=== PATIENT | male | born 1985 | race African-American/Black ===

== ENCOUNTER 2017-01-07 14:44 | Emergency (ER) | payer SELFPAY ==
--- NOTE | 2017-01-07 15:37 | ER Document Report ---
ED Medical Screen (RME) - General Chief Complaint: Abdominal Pain Stated Complaint: ABDOMINAL PAIN Time Seen by Provider: 01/07/17 15:30 Mode of Arrival: Ambulatory Information source: Patient TRAVEL OUTSIDE OF THE [place] IN LAST 30 DAYS: No - HPI Patient complains to provider of: rectal twitching, loose stools, nausea Notes: 01/07/17 15:36 Patient is a 31-year-old male who presents to the emergency room complaining of mucousy bloody stools with rectal pain and twitching that has been going on for the past 2-3 years, the twitching has become more prominent over the past few weeks prompting him to come to the emergency room, he does report gassy bloating sensation in his abdomen, but denies any actual abdominal pain, he reports nausea but no vomiting, he has never been evaluated for the symptoms in the past, does have a history of lymphoma that was treated in the past and RA, recently quit smoking cigarettes about a week ago, stopped smoking marijuana about a month ago, rarely uses alcohol - Related Data Allergies/Adverse Reactions: avacado Allergy (Uncoded 01/07/17 14:49) Past Medical History - Past Medical History Cardiac Medical History: Reports: Hx Heart Murmur Pulmonary Medical History: Reports: Hx Asthma - as a child Neurological Medical History: Reports: Hx Cerebrovascular Accident - as a child from high temperature from rheumatic fever Renal/ Medical History: Denies: Hx Peritoneal Dialysis Malignancy Medical History: Reports Hx Lymphoma - 2012, RESOLVED W/ MINIMAL TREATMENT GI Medical History: Reports: Hx Gastroesophageal Reflux Disease Musculoskeltal Medical History: 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
[2017-01-07 16:18] LABS: ABSOLUTE BASOPHILS # (AUTO) 0.1 10^3/uL (0.0-0.2); ABSOLUTE EOSINOPHILS # (AUTO) 0.1 10^3/uL (0.0-0.6); ABSOLUTE LYMPHOCYTES (AUTO) 2.5 10^3/uL (0.5-4.7); ABSOLUTE MONOCYTES (AUTO) 0.5 10^3/uL (0.1-1.4); ABSOLUTE NEUT (AUTO) 2.8 10^3/uL (1.7-8.2); HEMATOCRIT 44.7 % (37.9-51.0); HEMOGLOBIN 14.4 g/dL (13.5-17.0); HGB HCT DIFFERENCE -1.5; LYMPHOCYTES % (AUTO) 41.9 % (13-45); MEAN CORPUSCULAR HEMOGLOBIN 27.5 pg (27.0-33.4); MEAN CORPUSCULAR HGB CONC 32.3 g/dL (32.0-36.0); MEAN CORPUSCULAR VOLUME 85 fl (80-97); MONOCYTES % (AUTO) 8.9 % (3-13); RED BLOOD COUNT 5.24 10^6/uL (4.35-5.55); SEGMENTED NEUTROPHILS % (AUTO) 47.2 % (42-78)
[2017-01-07 16:32] LABS: ALANINE AMINOTRANSFERASE 47 U/L (21-72); ALBUMIN 4.4 g/dL (3.5-5.0); ALKALINE PHOSPHATASE 55 U/L (38-126); ANION GAP 10 (5-19); ASPARTATE AMINO TRANSFERASE 29 U/L (17-59); BILIRUBIN,DIRECT 0.4 mg/dL (0.0-0.4); BILIRUBIN,TOTAL 0.5 mg/dL (0.2-1.3); BLOOD UREA NITROGEN 11 mg/dL (7-20); CALCIUM 9.6 mg/dL (8.4-10.2); CARBON DIOXIDE 30 mmol/L (22-30); CHLORIDE 103 mmol/L (98-107); CREATININE RESULT 1.02 mg/dL (0.52-1.25); GLUCOSE 94 mg/dL (75-110); LIPASE 222.6 U/L (23-300); POTASSIUM 4.8 mmol/L (3.6-5.0); SODIUM 142.7 mmol/L (137-145); TOTAL PROTEIN 7.6 g/dL (6.3-8.2)
[2017-01-07 16:53] LABS: APPEARANCE,URINE CLOUDY; BILIRUBIN,URINE NEGATIVE (NEGATIVE); GLUCOSE, URINE NEGATIVE (NEGATIVE); KETONES,URINE NEGATIVE (NEGATIVE); URINE SPECIFIC GRAVITY 1.023
[2017-01-07 16:54] LABS: LEUKOCYTE ESTERASE,URINE NEGATIVE (NEGATIVE); NITRITE,URINE NEGATIVE (NEGATIVE); PROTEIN,URINE NEGATIVE (NEGATIVE); UROBILINOGEN,URINE NEGATIVE mg/dL (<2.0)
--- NOTE | 2017-01-07 19:27 | ER Document Report ---
ED GI/ - General Mode of Arrival: Ambulatory Information source: Patient TRAVEL OUTSIDE OF THE [place] IN LAST 30 DAYS: No - HPI Patient complains to provider of: Abdominal pain Onset: Other - see notes above Associated symptoms: Other - see notes above <MELISSA PORRAS - Last Filed: 01/07/17 21:43> <LISSETJUANAMARJIT FULLER DAVID - Last Filed: 01/07/17 23:37> - General Chief Complaint: Abdominal Pain Stated Complaint: ABDOMINAL PAIN Time Seen by Provider: 01/07/17 15:30 Notes: 31-year-old male with history of lymphoma (3 years ago) and rheumatoid arthritis (unmedicated) presents to the ED complaining of generalized abdominal pain for a few years that has recently been worsening. Patient reports that his symptoms started with episodes of rectal bleeding which was resolved after being seen in the ED. Patient states that since the rectal bleeding he hasn't had the same stool consistency. Patient also complains of mucus with his bowel movement and waking up with mucus in his underwear. Patient is also complaining of worsening 'twitching' and swelling to the rectal area. PCP: Dr. Renae (MELISSA PORRAS) - Related Data Allergies/Adverse Reactions: avacado Allergy (Uncoded 01/07/17 14:49) Past Medical History - General Information source: Patient - Social History Smoking Status: Unknown if Ever Smoked Family History: CAD, DM, Hyperlipidemia, Hypertension, Malignancy, Other - mother, abdominal tumors Patient has suicidal ideation: No Patient has homicidal ideation: No - Past Medical History Cardiac Medical History: Reports: Hx Heart Murmur Pulmonary Medical History: Reports: Hx Asthma - as a child Neurological Medical History: Reports: Hx Cerebrovascular Accident - as a child from high temperature from rheumatic fever Renal/ Medical History: Denies: Hx Peritoneal Dialysis Malignancy Medical History: Reports Hx Lymphoma - 2013, RESOLVED W/ MINIMAL TREATMENT GI Medical History: Reports: Hx Gastroesophageal Reflux Disease Musculoskeltal Medical History: 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 Psychiatric Medical History: Reports: Hx Anxiety, Hx Depression - Immunizations Immunizations up to date: Yes Hx Diphtheria, Pertussis, Tetanus Vaccination: Yes - 2011 <MELISSA PORRAS - Last Filed: 01/07/17 21:43> Review of Systems - Review of Systems Constitutional: No symptoms reported EENT: No symptoms reported Cardiovascular: No symptoms reported Respiratory: No symptoms reported Gastrointestinal: See HPI, Abdominal pain, Other - swelling and twitching to the anal area Genitourinary: No symptoms reported Male Genitourinary: No symptoms reported Musculoskeletal: No symptoms reported Skin: No symptoms reported Hematologic/Lymphatic: No symptoms reported Neurological/Psychological: No symptoms reported -: Yes All other systems reviewed and negative <MELISSA PORRAS - Last Filed: 01/07/17 21:43> Physical Exam - Vital signs Interpretation: Normal - General General appearance: Appears well, Alert - HEENT Head: Normocephalic, Atraumatic Eyes: Normal Pupils: PERRL - Respiratory Respiratory status: No respiratory distress Chest status: Nontender Breath sounds: Normal Chest palpation: Normal - Cardiovascular Rhythm: Regular Heart sounds: Normal auscultation Murmur: No - Abdominal Inspection: Normal Distension: No distension Bowel sounds: Normal Tenderness: Nontender Organomegaly: No organomegaly - Rectal Tenderness: No Stool: Heme negative Hemorrhoids: Internal Prostate: Normal. No: Tender, Boggy - Back Back: Normal, Nontender - Extremities General upper extremity: Normal inspection, Nontender, Normal color, Normal ROM , Normal temperature General lower extremity: Normal inspection, Nontender, Normal color, Normal ROM , Normal temperature, Normal weight bearing. No: Lorna's sign - Neurological Neuro grossly intact: Yes Cognition: Normal Orientation: AAOx4 Sperry Coma Scale Eye Opening: Spontaneous Sperry Coma Scale Verbal: Oriented Isra Coma Scale Motor: Obeys Commands Isra Coma Scale Total: 15 Speech: Normal Motor strength normal: LUE, RUE, LLE, RLE Sensory: Normal - Psychological Associated symptoms: Normal affect, Normal mood - Skin Skin Temperature: Warm Skin Moisture: Dry Skin Color: Normal <AMARJIT PAYAN - Last Filed: 01/07/17 23:37> - Vital signs Vitals: Temp Pulse Resp BP Pulse Ox 98.3 F 85 20 132/74 H 99 01/07/17 14:49 01/07/17 14:49 01/07/17 14:49 01/07/17 14:49 01/07/17 14:49 Course - Laboratory Result Diagrams: 01/07/17 15:55 01/07/17 15:55 <MELISSA PORRAS - Last Filed: 01/07/17 21:43> - Laboratory Result Diagrams: 01/07/17 15:55 01/07/17 15:55 - Diagnostic Test Radiology reviewed: Reports reviewed <AMARJIT PAYAN - Last Filed: 01/07/17 23:37> - Re-evaluation Re-evalutation: 01/07/17 23:37 Patient has no acute findings on blood work or imaging. Patient is instructed to follow-up for colonoscopy. I cannot find anything to treat today. No blood on exam. No evidence for rectal cancer on exam. Patient with history of intestinal disease in his family. Given the number for gastroenterology. ( AMARJIT PAYAN) - Vital Signs Vital signs: Temp Pulse Resp BP Pulse Ox 97.7 F 84 18 129/76 H 99 01/07/17 20:51 01/07/17 22:12 01/07/17 22:12 01/07/17 22:12 01/07/17 22:12 - Laboratory Laboratory results interpreted by me: 01/07/17 15:55 RDW 15.0 H Plt Count 116 L Discharge <MELISSA PORRAS - Last Filed: 01/07/17 21:43> <AMARJIT PAYAN - Last Filed: 01/07/17 23:37> - Discharge Clinical Impression: Proctalgia Abdominal pain Qualifiers: Abdominal location: unspecified location Qualified Code(s): R10.9 - Unspecified abdominal pain Condition: Stable Disposition: HOME, SELF-CARE Instructions: Abdominal Pain ([facility]) Additional Instructions: There are no abnormalities on your blood work or CT scan. Please follow-up with a appeals referee for colonoscopy. Forms: Return to Work Referrals: MACKENZIE RENAE MD [Primary Care Provider] - Follow up as needed RHONA CHRISTENSEN MD [ACTIVE STAFF] - Follow up as needed Scribe Attestation: 01/07/17 23:37 I personally performed the services described in the documentation, reviewed and edited the documentation which was dictated to the scribe in my presence, and it accurately records my words and actions. (AMARJIT PAYAN) Scribe Documentation - Scribe Written by Scribe:: Kathy Maldonado, 01/07/2017 [id number] acting as scribe for :: Avelina <MELISSA PORRAS - Last Filed: 01/07/17 21:43>
[2017-01-07] MEDS ORDERED: ONDANSETRON HCL INJ/PF 4 MG/2 ML SDV IV ONE ×2 (19:45→19:46)
--- NOTE | 2017-01-07 20:50 | RADIOLOGY REPORT (SQ) ---
EXAM DESCRIPTION: CT ABD/PELVIS WITH IV ONLY COMPLETED DATE/TIME: 01/07/2017 8:37 pm REASON FOR STUDY: pain, blood, mucus COMPARISON: None. TECHNIQUE: CT scan of the abdomen and pelvis performed using helical scanning technique with dynamic intravenous contrast injection. No oral contrast. Images reviewed with lung, soft tissue, and bone windows. Reconstructed coronal and sagittal MPR images reviewed. Delayed images for evaluation of the urinary system also acquired. All images stored on PACS. All CT scanners at this facility use dose modulation, iterative reconstruction, and/or weight based d osing when appropriate to reduce radiation dose to as low as reasonably achievable (ALARA). [facility]: Dose Right [facility]: CareDose [facility]: Dose Right [facility]: Teradose 4D [facility]: [employer] CONTRAST TYPE AND DOSE: contrast/concentration: Isovue 370.00 mg/ml; Total Contrast Delivered: 100.0 ml; Total Saline Delivered: 50.0 ml RENAL FUNCTION: BUN 11 creatinine 1.02. RADIATION DOSE: Up-to-date CT equipment and radiation dose reduction techniques were employed. CTDIv ol: 20.5 - 21.1 mGy. DLP: 2443 mGy-cm.. LIMITATIONS: None. FINDINGS: LOWER CHEST: No significant findings. No nodules or infiltrates. LIVER: Normal size. Marked diffuse fatty infiltration. No masses or dilated ducts. SPLEEN: Normal size. No focal lesions. PANCREAS: No masses. No significant calcifications. No adjacent inflammation or peripancreatic fluid collections. Pancreatic duct not dilated. GALLBLADDER: No identified stones by CT criteria. No inflammatory changes to suggest cholecystitis. ADRENAL GLANDS: No significant masses or asymmetry. RIGHT KIDNEY AND URETER: No solid masses. No significant calcifications. No hydronephrosis or hyd roureter. LEFT KIDNEY AND URETER: No solid masses. No significant calcifications. No hydronephrosis or hydr oureter. AORTA AND VESSELS: No aneurysm. No dissection. Renal arteries, SMA, celiac without stenosis. RETROPERITONEUM: No retroperitoneal adenopathy, hemorrhage or masses. BOWEL AND PERITONEAL CAVITY: No masses or inflammatory changes. No free fluid or peritoneal masses. APPENDIX: Normal. PELVIS: No mass or free fluid. Normal bladder. ABDOMINAL WALL: No masses. No hernias. BONES: No significant or acute findings. OTHER: No other significant finding. IMPRESSION: MARKED DIFFUSE FATTY INFILTRATION OF THE LIVER. NO OTHER SIGNIFICANT OR ACUTE FINDING I N THE ABDOMEN OR PELVIS ON CT SCAN WITH IV CONTRAST. TECHNICAL DOCUMENTATION: JOB ID: [id number] Quality ID # [id number]: Final reports with documentation of one or more dose reduction techniques (e.g., Au tomated exposure control, adjustment of the mA and/or kV according to patient size, use of iterative reconstruction technique) 2010 [employer]- All Rights Reserved
[2017-01-07 22:13] VITALS: BP 129/76
== END 2017-01-07 22:13 | disposition home or self-care (01) ==
LOC: ER 14:44
DX: R10.84 Generalized abdominal pain (principal); K62.89 Other specified diseases of anus and rectum; R19.4 Change in bowel habit; R19.5 Other fecal abnormalities; R25.3 Fasciculation; Z91.018 Allergy to other foods; Z85.72 Personal history of non-Hodgkin lymphomas; Z86.73 Personal history of transient ischemic attack (TIA), and cerebral infarction without residual deficits; Z83.79 Family history of other diseases of the digestive system
CPT/HCPCS: 99284; 96374; 36415; 87086; 83690; 85025; 80053; 81001; 74177; J2405

== ENCOUNTER 2019-06-01 18:19 | Emergency (ER) | payer BC, OTHER ==
[2019-06-01] MEDS ORDERED: IPRATROPIUM/ALBUTEROL 0.5-2.5 MG/3 ML AMPUL NEB ONE ×2 (19:03→21:34)
--- NOTE | 2019-06-01 19:08 | EKG REPORT ---
SEVERITY:- ABNORMAL ECG - SINUS RHYTHM LEFT VENTRICULAR HYPERTROPHY : Confirmed by: Oz Edwards MD 01-Jun-2019 19:07:25
--- NOTE | 2019-06-01 19:08 | ER Document Report ---
ED Medical Screen (RME) - General Chief Complaint: Chest Pain Stated Complaint: CHEST PAIN Time Seen by Provider: 06/01/19 18:53 Primary Care Provider: UZMA RENAE MD [Primary Care Provider] - Follow up as needed Notes: Patient is a 33-year-old male who presents the emergency department with a chief complaint of shortness of breath. Patient states that he feels like he has a foreign body feeling in his chest. Patient also states that he feels nauseous. Patient has a history of lymphoma and was diagnosed with it about 4 to [address] Bolden was his oncologist at that time. Patient also states that he feels his pain is going from his chest up into his neck. States that he is having some visual changes. Patient states that he has been a daily smoker since he was 15. Exam: Diminished expiratory lung sounds. I have greeted and performed a rapid initial assessment of this patient. A comprehensive ED assessment and evaluation of the patient, analysis of test results and completion of medical decision making process will be conducted by an additional ED providers. TRAVEL OUTSIDE OF THE [place] IN LAST 30 DAYS: No - Related Data Allergies/Adverse Reactions: avacado Allergy (Uncoded 06/01/19 18:44) Past Medical History - Social History Chew tobacco use (# tins/day): No Frequency of alcohol use: None Drug Abuse: Marijuana - Past Medical History Cardiac Medical History: Reports: Hx Heart Murmur Pulmonary Medical History: Reports: Hx Asthma - as a child Neurological Medical History: Reports: Hx Cerebrovascular Accident - as a child from high temperature from rheumatic fever Renal/ Medical History: Denies: Hx Peritoneal Dialysis Malignancy Medical History: Reports Hx Lymphoma - 2012, RESOLVED W/ MINIMAL TREATMENT GI Medical History: Reports: Hx Gastroesophageal Reflux Disease Musculoskeltal Medical History: 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
[2019-06-01 19:48] LABS: ABSOLUTE EOSINOPHILS # (AUTO) 0.1 10^3/uL (0.0-0.6); ABSOLUTE LYMPHOCYTES (AUTO) 3.5 10^3/uL (0.5-4.7); ABSOLUTE MONOCYTES (AUTO) 0.6 10^3/uL (0.1-1.4); ABSOLUTE NEUT (AUTO) 2.1 10^3/uL (1.7-8.2); BASOPHILS % (AUTO) 0.7 % (0-2); EOSINOPHILS % (AUTO) 1.4 % (0-6); HEMATOCRIT 44.6 % (37.9-51.0); HEMOGLOBIN 14.7 g/dL (13.5-17.0); LYMPHOCYTES % (AUTO) 55.1 % (13-45); MEAN CORPUSCULAR HEMOGLOBIN 28.2 pg (27.0-33.4); MEAN CORPUSCULAR HGB CONC 32.9 g/dL (32.0-36.0); MEAN CORPUSCULAR VOLUME 86 fl (80-97); MONOCYTES % (AUTO) 9.5 % (3-13); PLATELET COUNT 120 10^3/uL (150-450); RED BLOOD COUNT 5.19 10^6/uL (4.35-5.55); RED CELL DISTRIBUTION WIDTH 15.2 % (11.5-14.0); SEGMENTED NEUTROPHILS % (AUTO) 33.3 % (42-78); TOTAL CELLS COUNTED % (AUTO) 100 %; WHITE BLOOD COUNT 6.4 10^3/uL (4.0-10.5)
--- NOTE | 2019-06-01 19:57 | RADIOLOGY REPORT (SQ) ---
EXAM DESCRIPTION: CHEST 2 VIEWS COMPLETED DATE/TIME: 06/01/2019 7:31 pm REASON FOR STUDY: shortness of breath COMPARISON: 07/06/2015 TECHNIQUE: Frontal and lateral radiographic views of the chest acquired. NUMBER OF VIEWS: Two view. LIMITATIONS: None. FINDINGS: LUNGS AND PLEURA: No pneumothorax. No consolidation or pleural effusion. MEDIASTINUM AND HILAR STRUCTURES: Stable. HEART AND VASCULAR STRUCTURES: Stable. BONES: No acute findings. HARDWARE: None in the chest. OTHER: No other significant finding. IMPRESSION: NO ACUTE FINDINGS. TECHNICAL DOCUMENTATION: JOB ID: [id number] [place]-72 2010 [employer]- All Rights Reserved Reading location - IP/workstation name: [employer]
[2019-06-01 19:58] LABS: ALBUMIN 4.7 g/dL (3.5-5.0); ALKALINE PHOSPHATASE 72 U/L (38-126); ANION GAP 8 (5-19); ASPARTATE AMINO TRANSFERASE 32 U/L (17-59); BILIRUBIN,DIRECT 0.2 mg/dL (0.0-0.4); BILIRUBIN,TOTAL 0.4 mg/dL (0.2-1.3); BLOOD UREA NITROGEN 14 mg/dL (7-20); CALCIUM 9.9 mg/dL (8.4-10.2); CARBON DIOXIDE 29 mmol/L (22-30); CHLORIDE 103 mmol/L (98-107); GLUCOSE 115 mg/dL (75-110); POTASSIUM 4.2 mmol/L (3.6-5.0); TOTAL PROTEIN 7.8 g/dL (6.3-8.2)
[2019-06-02 00:42] LABS: NT PRO BNP < 11 pg/mL (<125); TROPONIN I < 0.012 ng/mL
--- NOTE | 2019-06-02 01:25 | ER Document Report ---
HPI - HPI Time Seen by Provider: 06/01/19 18:53 Pain Level: 3 Notes: Patient is an otherwise healthy 33-year-old male presented to the emergency department chief complaint of 1 year history of chest pain, intermittent shortness of breath and coughing up "foam". Patient reports a lot of anxiety related to his home life and work life. Patient denies any history of cardiac disease. - NEURO Neurology: REPORTS: Headache - REPRODUCTIVE Reproductive: DENIES: : Past Medical History - General Information source: Patient - Social History Smoking Status: Current Every Day Smoker Chew tobacco use (# tins/day): No Frequency of alcohol use: None Drug Abuse: Marijuana Family History: CAD, DM, Hyperlipidemia, Hypertension, Malignancy, Other - mother, abdominal tumors Patient has suicidal ideation: No Patient has homicidal ideation: No - Past Medical History Cardiac Medical History: Reports: Hx Heart Murmur Pulmonary Medical History: Reports: Hx Asthma - as a child Neurological Medical History: Reports: Hx Cerebrovascular Accident - as a child from high temperature from rheumatic fever Renal/ Medical History: Denies: Hx Peritoneal Dialysis Malignancy Medical History: Reports Hx Lymphoma - 2012, RESOLVED W/ MINIMAL TREATMENT GI Medical History: Reports: Hx Gastroesophageal Reflux Disease Musculoskeletal Medical History: 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 HEAD: Atraumatic, normocephalic. EYES: Pupils equal round and reactive to light, extraocular movements intact, sclera anicteric, conjunctiva are normal. ENT: Nares patent, oropharynx clear without exudates. Moist mucous membranes. NECK: Normal range of motion, supple without lymphadenopathy LUNGS: Breath sounds clear to auscultation bilaterally and equal. No wheezes rales or rhonchi. HEART: Regular rate and rhythm without murmurs ABDOMEN: Soft, nontender, nondistended abdomen. No guarding, no rebound. No masses appreciated. Musculoskeletal: Normal range of motion, no pitting or edema. No cyanosis. NEUROLOGICAL: Cranial nerves grossly intact. Normal speech, normal gait. Normal sensory, motor exams PSYCH: Normal mood, normal affect. SKIN: Warm, Dry, normal turgor, no rashes or lesions noted. - INFECTION CONTROL TRAVEL OUTSIDE OF THE [place] IN LAST 30 DAYS: No Course - Re-evaluation Re-evalutation: Patient appears well, nontoxic, low risk for ACS. Cardiac work-up today has been unremarkable. Troponin negative. Chest x-ray unremarkable. Likely anxiety. Patient may also have a component of gastro-esophageal reflux. EKG shows a sinus rhythm, rate of 69, QTc 403, normal axis, no ST segment elevations or depressions to suggest ischemia. - Vital Signs Vital signs: Temp Pulse Resp BP Pulse Ox 98.2 F 66 165/97 H 100 06/01/19 18:30 06/01/19 18:30 06/01/19 18:30 06/01/19 18:30 - Laboratory Result Diagrams: 06/01/19 19:40 06/01/19 19:22 Laboratory results interpreted by me: 06/01/19 06/01/19 19:22 19:40 RDW 15.2 H Plt Count 120 L Lymph % (Auto) 55.1 H Seg Neutrophils % 33.3 L Glucose 115 H Discharge - Discharge Clinical Impression: Anxiety Chest pain Qualifiers: Chest pain type: unspecified Qualified Code(s): R07.9 - Chest pain, unspecified GERD (gastroesophageal reflux disease) Qualifiers: Esophagitis presence: esophagitis presence not specified Qualified Code(s): K21.9 - Gastro-esophageal reflux disease without esophagitis Condition: Stable Disposition: HOME, SELF-CARE Additional Instructions: Your work-up here in the emergency department today was reassuring. Your blood work and cardiac enzymes were normal. Your chest x-ray was also normal. I do believe a lot of your symptoms are coming from anxiety. Some of the chest pain and burping and belching may be coming more from acid reflux. I did prescribe you acid reflux medication to try and, if this helps your symptoms please continue taking it as prescribed. Please consider following up with a mental health provider regarding the anxiety symptoms, I have given you a list of resources in the area. Please also consider establishing care with a primary care provider, as discussed Dr. Berry and Dr. Sommers are here locally and are both accepting new patients. Prescriptions: Omeprazole 20 mg PO DAILY #30 capsule.dr Forms: Return to Work Referrals: REESE BERRY MD [ACTIVE STAFF] - Follow up as needed
[2019-06-02 01:35] VITALS: BP 145/86
== END 2019-06-02 01:36 | disposition home or self-care (01) ==
LOC: ER 18:19
DX: F41.9 Anxiety disorder, unspecified (principal); R07.9 Chest pain, unspecified; K21.9 Gastro-esophageal reflux disease without esophagitis; R06.02 Shortness of breath; R05 Cough; R51 Headache; F17.200 Nicotine dependence, unspecified, uncomplicated
CPT/HCPCS: 93005; 36415; 84443; 85025; 80053; 84484; 83880; 71046; 93010; J7620; 94640; 99285